=== PATIENT | female | born 2000 | race Caucasian/White ===

== ENCOUNTER 2023-01-29 10:07 | Emergency (ER) | payer BC, OTHER ==
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
[2023-01-29 11:20] VITALS: PULSE 81; TEMP 98.1
[2023-01-29 12:08] VITALS: BP 176/109; O2SAT 100
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
[2023-01-29 13:19] LABS: Appearance Cloudy (Clear); Bacteria Moderate /HPF (None Seen); Bilirubin Negative (Negative); Blood Negative (Negative); Glucose, Urine Negative (Negative); Ketones 15 (Negative); Leukocyte Esterase Moderate (Negative); Nitrite Negative (Negative); Ph 6.5 (4.6-8.0); Protein,Urine Dip 30 (Negative); RBC 0-2 /HPF (0-5); Specific Gravity 1.025 (1.005-1.030)
[2023-01-29 13:20] LABS: Epithelial Cells Few /HPF (None Seen)
[2023-01-29 13:21] LABS: ADD URINE CULTURE? YES (NO); Hyaline Casts None Seen /LPF (0-2); Sperm Rare /HPF (None Seen)
== END 2023-01-29 12:46 | disposition home or self-care (01) ==
LOC: ED 10:07
DX: Z04.1 Encounter for examination and observation following transport accident (principal); O43.899 Other placental disorders, unspecified trimester; R10.31 Right lower quadrant pain; R10.32 Left lower quadrant pain; R10.2 Pelvic and perineal pain
CPT/HCPCS: 76815; 81001; 87086; 99285

== ENCOUNTER 2023-01-29 21:28 | Emergency (ER) | payer BC ==
[2023-01-29 21:55] VITALS: TEMP 98.2
[2023-01-29] MEDS ORDERED: TYLENOL 325 MG PO ONE (22:13)
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
[2023-01-29] MEDS ORDERED: TYLENOL 325 MG ONE (22:26)
[2023-01-29 22:38] LABS: Absolute Neutrophil Ct (ANC) 4.86 x10^3/uL (1.4-6.9); BASOPHIL % 0.5 % (0.0-0.4); Basophil (Absolute #) 0.04 x10^3/uL (0-0.4); Eosinophil % 0.5 % (0.00-5.0); Eosinophil (Absolute #) 0.04 x10^3/uL (0-0.5); Hematocrit 36.8 % (35-47); Hemoglobin 12.8 g/dL (12.0-16.0); IMMATURE GRAN # 0.02 x10^3u/L (0.00-0.03); IMMATURE GRAN % 0.2 % (0.00-0.4); Lymphocyte (Absolute #) 2.69 x10^3/uL (1.0-4.6); Mean Cell Volume 89.1 fL (78-100); Mean Corpuscular Hgb Concent. 34.8 g/dL (32-36); Mean Platelet Volume 10.9 fL (7.5-11.0); Monocyte (Absolute #) 0.75 x10^3/uL (0.0-1.3); Monocytes % 8.9 % (0.0-12.0); Neutrophil % 57.9 % (36.0-66.0); Platelet Count 281 x10^3/uL (150-450); Red Blood Count 4.13 x10^6/uL (4.1-5.4); Red Cell Distribution Width 13.4 % (11.5-14.0); White Blood Count 8.4 x10^3/uL (4.0-10.5)
[2023-01-29 22:54] LABS: ALBUMIN 3.7 g/dL (3.5-5.0); ALKALINE PHOSPHATASE 54 U/L (38-126); ANION GAP 10.7 MEQ/L (5-15); BLOOD UREA NITROGEN 5 mg/dL (7-17); CHLORIDE 103 mmol/L (98-107); Calcium 8.3 mg/dL (8.4-10.2); Carbon Dioxide 24 mmol/L (22-30); Creatinine 1 0.49 mg/dL (0.52-1.04); EST GLOMERULAR FILTRATION RATE > 60.0 ML/MIN; Glucose 88 mg/dL (74-106); Potassium 3.3 mmol/L (3.5-5.1); SGOT/AST 21 U/L (14-36); SGPT/ALT 12 U/L (0-35); SODIUM 134 mmol/L (137-145); Total Protein 6.8 g/dL (6.3-8.2)
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
[2023-01-30 00:48] LABS: Appearance Clear (Clear); Bacteria Rare /HPF (None Seen); Bilirubin Negative (Negative); Blood Negative (Negative); Epithelial Cells Few /HPF (None Seen); Glucose, Urine Negative (Negative); Hyaline Casts NONE SEEN /LPF (0-2); Ketones Trace (Negative); Leukocyte Esterase Trace (Negative); Nitrite Negative (Negative); Protein,Urine Dip Negative (Negative); RBC 0-2 /HPF (0-5); Specific Gravity 1.015 (1.005-1.030); Urobilinogen 0.2 mg/dL (0.2)
[2023-01-30 00:54] LABS: ADD URINE CULTURE? NO (NO)
[2023-01-30] MEDS ORDERED: Klor Con PO ONE ×2 (01:52→01:56)
[2023-01-30] MEDS ORDERED: Trandate 100 MG PO STA (01:52)
[2023-01-30 02:07] VITALS: RESP 18
[2023-01-30 02:35] VITALS: BP 136/88; PULSE 69; O2SAT 96
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
== END 2023-01-30 02:35 | disposition home or self-care (01) ==
LOC: ED 21:28
DX: Z04.1 Encounter for examination and observation following transport accident (principal); O43.892 Other placental disorders, second trimester; O16.2 Unspecified maternal hypertension, second trimester; O23.42 Unspecified infection of urinary tract in pregnancy, second trimester; N39.0 Urinary tract infection, site not specified; Z3A.16 16 weeks gestation of pregnancy; R51.9 Headache, unspecified; E87.6 Hypokalemia; Z28.310 Unvaccinated for COVID-19
CPT/HCPCS: 36000; 36415; 70450; 76815; 80053; 81001; 84702; 85025; 99284; A9270-GY

== ENCOUNTER 2023-04-01 16:21 | Observation (INO) | payer BC ==
[2023-04-01 17:43] LABS: Appearance Cloudy (Clear); Bacteria Rare /HPF (None Seen); Bilirubin Small (Negative); Blood Negative (Negative); Epithelial Cells Moderate /HPF (None Seen); Glucose, Urine Negative (Negative); Hyaline Casts >50 /LPF (0-2); Ketones Trace (Negative); Leukocyte Esterase Negative (Negative); Nitrite Negative (Negative); Ph 6.5 (4.6-8.0); Protein,Urine Dip 100 (Negative); Specific Gravity >=1.030 (1.005-1.030)
[2023-04-01] MEDS ORDERED: Lactated Ringers 1,000 ML IV ONE ×2 (18:20→19:10)
[2023-04-01 19:23] LABS: Absolute Neutrophil Ct (ANC) 8.38 x10^3/uL (1.4-6.9); BASOPHIL % 0.4 % (0.0-0.4); Basophil (Absolute #) 0.05 x10^3/uL (0-0.4); Eosinophil % 0.4 % (0.00-5.0); Eosinophil (Absolute #) 0.04 x10^3/uL (0-0.5); Hematocrit 37.2 % (35-47); Hemoglobin 12.6 g/dL (12.0-16.0); IMMATURE GRAN # 0.08 x10^3u/L (0.00-0.03); IMMATURE GRAN % 0.7 % (0.00-0.4); Lymphocyte (Absolute #) 1.92 x10^3/uL (1.0-4.6); Mean Cell Volume 93.5 fL (78-100); Mean Corpuscular Hemoglobin 31.7 pg (26-32); Mean Corpuscular Hgb Concent. 33.9 g/dL (32-36); Monocyte (Absolute #) 0.82 x10^3/uL (0.0-1.3); Monocytes % 7.3 % (0.0-12.0); Neutrophil % 74.2 % (36.0-66.0); Platelet Count 317 x10^3/uL (150-450); Red Blood Count 3.98 x10^6/uL (4.1-5.4); Red Cell Distribution Width 13.2 % (11.5-14.0); White Blood Count 11.3 x10^3/uL (4.0-10.5)
[2023-04-01 19:37] LABS: Creatinine, Urine Random 163.3 mg/dl; Protein Creatinine Ratio, Ran. 0.09 mg/mg (0.0-0.15)
[2023-04-01] MEDS ORDERED: TYLENOL 325 MG PO PRN (19:39)
[2023-04-01 19:42] LABS: ALBUMIN 3.9 g/dL (3.5-5.0); ANION GAP 14.9 MEQ/L (5-15); BILIRUBIN,TOTAL 0.2 mg/dL (0.2-1.3); Calcium 9.2 mg/dL (8.4-10.2); Creatinine 1 0.51 mg/dL (0.52-1.04); EST GLOMERULAR FILTRATION RATE 133.6 ML/MIN; Total Protein 7.7 g/dL (6.3-8.2); Uric Acid 2.5 mg/dL (2.6-6.0)
[2023-04-01 19:43] VITALS: BP 133/81; PULSE 72; RESP 18; TEMP 99; O2SAT 99
[2023-04-01] MEDS ORDERED: TYLENOL 325 MG ONE (20:12)
[2023-04-01] MEDS ORDERED: Trandate 100 MG PO SCH (22:00)
[2023-04-02] MEDS ORDERED: ECOTRIN 81 MG PO SCH (21:00)
== END 2023-04-01 20:40 | disposition home or self-care (01) ==
LOC: OB 16:21
PROVIDERS: ADMIT Obstetrics & Gynecology; ATTEND Obstetrics & Gynecology
DX: Z34.82 Encounter for supervision of other normal pregnancy, second trimester (principal); Z3A.24 24 weeks gestation of pregnancy
CPT/HCPCS: 36415; 80053; 81001; 82570; 84112; 84156; 84550; 85025; G0378; G0379; A9270-GY

== ENCOUNTER 2023-04-08 23:30 | Observation (INO) | payer OTHER ==
[2023-04-08] MEDS ORDERED: Zofran 4 MG/2 ML VIAL ONE (23:49)
[2023-04-08] MEDS: Zofran 4 MG/2 ML VIAL IV PRN (23:54)
[2023-04-09] MEDS ORDERED: Lactated Ringers 1,000 ML IV ONE
[2023-04-09 00:28] LABS: INFLUENZA A NEGATIVE (NEGATIVE); INFLUENZA B NEGATIVE (NEGATIVE); RESPIRATORY SYNCTIAL VIRUS NEGATIVE (NEGATIVE); SARS-CoV-2 Xpert Express NEGATIVE (NEGATIVE)
[2023-04-09] MEDS ORDERED: Lactated Ringers 1,000 ML IV SCH (01:00)
[2023-04-09] MEDS: Zofran 4 MG/2 ML VIAL IV PRN (01:15)
[2023-04-09] MEDS ORDERED: Zofran 4 MG/2 ML VIAL IV PRN (05:21)
[2023-04-09 06:09] LABS: Hematocrit 35.1 % (35-47); Hemoglobin 11.9 g/dL (12.0-16.0); Mean Cell Volume 92.9 fL (78-100); Mean Corpuscular Hemoglobin 31.5 pg (26-32); Mean Corpuscular Hgb Concent. 33.9 g/dL (32-36); Mean Platelet Volume 10.7 fL (7.5-11.0); Platelet Count 292 x10^3/uL (150-450); Red Blood Count 3.78 x10^6/uL (4.1-5.4)
[2023-04-09 06:25] LABS: ALBUMIN 3.3 g/dL (3.5-5.0); ANION GAP 11.6 MEQ/L (5-15); BILIRUBIN,TOTAL 0.5 mg/dL (0.2-1.3); Calcium 8.3 mg/dL (8.4-10.2); Creatinine 1 0.4 mg/dL (0.52-1.04); EST GLOMERULAR FILTRATION RATE 140.8 ML/MIN; Potassium 3.7 mmol/L (3.5-5.1); Total Protein 6.6 g/dL (6.3-8.2)
[2023-04-09] MEDS ORDERED: ANTI DIARRHEAL PO PRN (07:59)
[2023-04-09] MEDS ORDERED: Sodium Chloride 0.9% 1000 ML 1,000 ML IV SCH (08:00)
--- NOTE | 2023-04-09 08:16 | PCM.HP ---
History of Present Illness - Chief Complaint Chief Complaint: N/V abdominal pain History of Present Illness: is a 23 year old female. pt admitted at 26 wks gestation with current hx of worsening nausea and vomiting since being seen earlier for preeclampsia work up. pt co diarrhea vomiting and nausea after having left hospital yesterday. currently feeling better. Medications & Allergies Home Medications: Home Medication List Aspirin [Aspirin EC] 81 mg PO BID 01/29/23 [History Confirmed 04/09/23] Labetalol HCl 100 mg [Trandate 100 MG] 200 mg PO BID 7 Days #28 tablet 01/30/23 [Rx Confirmed 04/09/23] Allergies/Adverse Reactions: Allergies Allergy/AdvReac Type Severity Reaction Status Date / Time cefdinir [From Omnicef] Allergy Verified 04/09/23 01:48 diphenhydramine Allergy Verified 04/09/23 01:48 [From Benadryl] levofloxacin [From Levaquin] Allergy Verified 04/09/23 01:48 - Past Medical History Past Medical History: Yes Neurological History: No Pertinent History ENT History: No Pertinent History Cardiac History: No Pertinent History Respiratory History: Asthma Endocrine Medical History: No Pertinent History Musculoskelatal History: Fractures GI Medical History: Colitis History: No Pertinent History Pyscho-Social History: No Pertinent History Reproductive Disorders: No Pertinent History - Past Surgical History Past Surgical History: Yes Neuro Surgical History: No Pertinent History Cardiac History: No Pertinent History Respiratory Surgery: No Pertinent History GI Surgical History: No Pertinent History Genitourinary Surgical Hx: No Pertinent History Musculskeletal Surgical Hx: No Pertinent History Female Surgical History: No Pertinent History Other Surgical History: FX ELBOW SURGERY - Social History Smoking Status: Former smoker Exposure to second hand smoke: No Alcohol: None Drug Use: none - Physical Exam Vital Signs: Vital Signs - 24 hr Temp Pulse Resp BP BP Pulse Ox 04/09/23 04:02 101 H 17 133/81 98 04/09/23 00:14 98.1 F 85 17 143/91 99 Neurologic Exam: alert, oriented x 3 Gastrointestinal/Abdomen Exam: soft Pelvic Exam: not done Results - Labs Lab/Micro Results: Lab Results-Last 24 Hours 04/08/23 04/09/23 04/09/23 Range/Units 23:45 05:21 05:22 WBC 9.0 (4.0-10.5) x10^3/uL RBC 3.78 L (4.1-5.4) x10^6/uL Hgb 11.9 L (12.0-16.0) g/dL Hct 35.1 (35-47) % MCV 92.9 (78-100) fL MCH 31.5 (26-32) pg MCHC 33.9 (32-36) g/dL RDW 13.0 (11.5-14.0) % Plt Count 292 (150-450) x10^3/uL MPV 10.7 (7.5-11.0) fL Sodium 132 L (137-145) mmol/L Potassium 3.7 (3.5-5.1) mmol/L Chloride 105 (98-107) mmol/L Carbon Dioxide 19 L (22-30) mmol/L Anion Gap 11.6 (5-15) MEQ/L BUN 3 L (7-17) mg/dL Creatinine 0.40 L (0.52-1.04) mg/dL Estimated GFR 140.8 ML/MIN Glucose 106 (74-106) mg/dL Calcium 8.3 L (8.4-10.2) mg/dL Total Bilirubin 0.50 (0.2-1.3) mg/dL AST 17 (14-36) U/L ALT 10 (0-35) U/L Alkaline Phosphatase 69 (38-126) U/L Serum Total Protein 6.6 (6.3-8.2) g/dL Albumin 3.3 L (3.5-5.0) g/dL Influenza Type A Ag NEGATIVE (NEGATIVE) Influenza Type B Ag NEGATIVE (NEGATIVE) RSV (PCR) NEGATIVE (NEGATIVE) SARS-CoV-2 (PCR) NEGATIVE (NEGATIVE) Assessment/Plan (1) Gastroenteritis Current Visit: Yes Status: Acute Code(s): K52.9 - NONINFECTIVE GASTROENTERITIS AND COLITIS, UNSPECIFIED (2) Vomiting affecting Current Visit: Yes Status: Acute Code(s): O21.9 - VOMITING OF , UNSPECIFIED
--- NOTE | 2023-04-09 08:18 | PCM.NOTE ---
Date and Time: 04/09/23815 Subjective Assessment: pt at 26 wks gestation currently receiving iv hydration due to nausea and vomiting and diarrhea and states feeling better at this time. denies uterine contx and not able to keep food down at this time. vss afebrile abd; soft uterus; gravid pelvic deferred sodium level 133 a/p iup at 26 wks with gastroenteritis will continue iv hydration will anticipate discharge later today OBJECTIVE DATA Vital Signs: Vital Signs - 24 hr Temp Pulse Resp BP BP Pulse Ox 04/09/23 04:02 101 H 17 133/81 98 04/09/23 00:14 98.1 F 85 17 143/91 99 Pain Assessment - Last Documented Pain Intensity 10 Intake and Output: Intake & Output 04/06/23 04/07/23 04/08/23 04/09/23 11:59 11:59 11:59 11:59 Intake Total 400 Output Total 50 Balance 350 Weight 92.079 kg Lab Results: Lab Results-Last 24 Hours 04/08/23 04/09/23 04/09/23 Range/Units 23:45 05:21 05:22 WBC 9.0 (4.0-10.5) x10^3/uL RBC 3.78 L (4.1-5.4) x10^6/uL Hgb 11.9 L (12.0-16.0) g/dL Hct 35.1 (35-47) % MCV 92.9 (78-100) fL MCH 31.5 (26-32) pg MCHC 33.9 (32-36) g/dL RDW 13.0 (11.5-14.0) % Plt Count 292 (150-450) x10^3/uL MPV 10.7 (7.5-11.0) fL Sodium 132 L (137-145) mmol/L Potassium 3.7 (3.5-5.1) mmol/L Chloride 105 (98-107) mmol/L Carbon Dioxide 19 L (22-30) mmol/L Anion Gap 11.6 (5-15) MEQ/L BUN 3 L (7-17) mg/dL Creatinine 0.40 L (0.52-1.04) mg/dL Estimated GFR 140.8 ML/MIN Glucose 106 (74-106) mg/dL Calcium 8.3 L (8.4-10.2) mg/dL Total Bilirubin 0.50 (0.2-1.3) mg/dL AST 17 (14-36) U/L ALT 10 (0-35) U/L Alkaline Phosphatase 69 (38-126) U/L Serum Total Protein 6.6 (6.3-8.2) g/dL Albumin 3.3 L (3.5-5.0) g/dL Influenza Type A Ag NEGATIVE (NEGATIVE) Influenza Type B Ag NEGATIVE (NEGATIVE) RSV (PCR) NEGATIVE (NEGATIVE) SARS-CoV-2 (PCR) NEGATIVE (NEGATIVE) Assessment/Plan (1) Gastroenteritis Current Visit: Yes Status: Acute Code(s): K52.9 - NONINFECTIVE GASTROENTERITIS AND COLITIS, UNSPECIFIED (2) Vomiting affecting Current Visit: Yes Status: Acute Code(s): O21.9 - VOMITING OF , UNSPECIFIED
[2023-04-09 09:56] VITALS: RESP 18
[2023-04-09] MEDS ORDERED: ECOTRIN 81 MG PO SCH (10:00)
[2023-04-09] MEDS ORDERED: Trandate 100 MG PO SCH (10:00)
[2023-04-09 14:44] VITALS: BP 131/75; PULSE 106; TEMP 98.3; O2SAT 99
== END 2023-04-09 13:30 | disposition home or self-care (01) ==
LOC: MED SURG 23:30
PROVIDERS: ADMIT Obstetrics & Gynecology; ATTEND Obstetrics & Gynecology
DX: Z34.82 Encounter for supervision of other normal pregnancy, second trimester (principal); Z3A.26 26 weeks gestation of pregnancy; Z59.89 Other problems related to housing and economic circumstances
CPT/HCPCS: 0241U; 36415; 80053; 85027; G0378; G0379; J2405; A9270-GY

== ENCOUNTER 2023-05-07 14:48 | Observation (INO) | payer BC, OTHER ==
[2023-05-07] MEDS ORDERED: Sodium Chloride 0.9% 1000 ML 1,000 ML IV SCH (15:15)
[2023-05-07 15:33] VITALS: BP 133/85; PULSE 107; RESP 20; TEMP 97.8; O2SAT 99
== END 2023-05-07 17:40 | disposition home or self-care (01) ==
LOC: MED SURG 14:48
PROVIDERS: ADMIT Obstetrics & Gynecology; ATTEND Obstetrics & Gynecology
DX: O26.893 Other specified pregnancy related conditions, third trimester (principal); Z3A.30 30 weeks gestation of pregnancy; E87.1 Hypo-osmolality and hyponatremia
CPT/HCPCS: 99213; G0378; G0379

== ENCOUNTER 2023-11-26 09:06 | Emergency (ER) | payer BC, OTHER ==
--- NOTE | 2023-11-26 09:21 | ERPHSYRPT ---
- History of Present Illness Time Seen by Provider: 11/26/23 09:21 Source: patient Exam Limitations: no limitations Physician History: This is a 23-year-old white female patient of Dr. Talavera who presents to emergency department with 3-day history of headache that is throbbing, sore throat and generalized bodyaches as well as fever. Patient's mother provided additional, independent history because the patient feels poorly. Patient's mother stated that the fever was as high as 104 F. At 730 this a.m., the patient took 600 mg of oral ibuprofen. Patient has earaches and mild neck ache. She has no known exposures to individuals with similar symptoms. She has no back pain. She has no abdominal pain. She has had no diarrhea symptoms. She does not complain of chest pain, shortness of breath or cough. Timing/Duration: day(s) (3), worse Possible Cause: no prior episodes Modifying Factors: Improves With: nothing Associated Symptoms: fever, chills, earache, headache (Bilateral), muscle aches, sore throat, No chest pain/soreness, No cough, No shortness of breath Allergies/Adverse Reactions: cefdinir [From Omnicef] Allergy (Verified 11/26/23 09:29) diphenhydramine [From Benadryl] Allergy (Verified 11/26/23 09:29) levofloxacin [From Levaquin] Allergy (Verified 11/26/23 09:29) Hx Tetanus, Diphtheria Vaccination/Date Given: Yes Hx Influenza Vaccination/Date Given: No Hx Pneumococcal Vaccination/Date Given: No Travel Risk - International Travel Have you traveled outside of the country in past 3 weeks: No - Emerging Infectious Disease Are you exhibiting symptoms associated with any current EIDs: Yes Symptoms: Fever, Headaches/Body Aches/ - Review of Systems Constitutional: Fever Eyes: No Symptoms Ears, Nose, & Throat: No Symptoms Respiratory: No Symptoms Cardiac: No Symptoms Abdominal/Gastrointestinal: Nausea, Appetite Changes, No Abdominal Pain, No Vomiting, No Diarrhea, No Constipation Genitourinary Symptoms: No Symptoms Musculoskeletal: Arthralgias, Neck Pain (Mild), Myalgias, No Back Pain Skin: No Symptoms Neurological: Headache Psychological: No Symptoms Endocrine: No Symptoms Hematologic/Lymphatic: No Symptoms Immunological/Allergic: No Symptoms All Other Systems: Reviewed and Negative - Past Medical History Pertinent Past Medical History: Yes Neurological History: No Pertinent History ENT History: No Pertinent History Cardiac History: No Pertinent History Respiratory History: Asthma Endocrine Medical History: No Pertinent History Musculoskeletal History: Fractures GI Medical History: Colitis History: No Pertinent History Psycho-Social History: No Pertinent History Female Reproductive Disorders: No Pertinent History - Past Surgical History Past Surgical History: Yes Neuro Surgical History: No Pertinent History Cardiac: No Pertinent History Respiratory: No Pertinent History Gastrointestinal: No Pertinent History Genitourinary: No Pertinent History Musculoskeletal: No Pertinent History Female Surgical History: No Pertinent History Other Surgical History: FX ELBOW SURGERY - Female History Hx Last Menstrual Period: CURRENT - Social History Smoking Status: Former smoker Exposure to second hand smoke: No Drug Use: none Patient Lives Alone: No - Social Determinants of Health Will the patient participate in the screening: Yes Do you worry about a steady place to live?: Yes In the past 12 months,have you had to go without utilities?: No Transportation Issues: No Has anyone in your support network made you feel unsafe?: No Have you or anyone in your house had to go without enough: No - Nursing Vital Signs Nursing Vital Signs: Initial Vital Signs Temperature 97.6 F 11/26/23 09:45 Pulse Rate 88 11/26/23 09:45 Respiratory Rate 18 11/26/23 09:45 Blood Pressure 131/92 11/26/23 09:45 O2 Sat by Pulse Oximetry 98 11/26/23 09:45 Pain Scale Pain Intensity 9 - Physical Exam General Appearance: mild distress, alert, anxiety Eye Exam: PERRL/EOMI, eyes nml inspection Ears, Nose, Throat Exam: normal ENT inspection, moist mucous membranes Neck Exam: normal inspection, non-tender, supple, full range of motion, No meningismus Respiratory Exam: normal breath sounds, lungs clear, airway intact, No chest tenderness, No respiratory distress Cardiovascular Exam: regular rate/rhythm, normal heart sounds, normal peripheral pulses Gastrointestinal/Abdomen Exam: soft, normal bowel sounds, tenderness Pelvic Exam: not done Rectal Exam: not done Back Exam: normal inspection, normal range of motion, No CVA tenderness, No vertebral tenderness Extremity Exam: normal inspection, normal range of motion, pelvis stable Neurologic Exam: alert, oriented x 3, cooperative, central office repairer II-XII nml as tested, nml cerebellar function, nml station & gait, sensation nml Skin Exam: normal color, warm, dry, diaphoresis Lymphatic Exam: No adenopathy SpO2 Interpretation: normal O2 Delivery: Room Air Ordered Tests: Active Orders 24 hr Category Date Time Status IV Insertion STAT Care 11/26/23 09:48 Active CHEST 1 VIEW (PORTABLE) Stat Exams 11/26/23 09:59 Completed BLOOD CULTURE Stat Lab 11/26/23 10:30 Received CBC W DIFF Stat Lab 11/26/23 09:55 Completed CMP Stat Lab 11/26/23 09:55 Completed CULTURE,URINE Stat Lab 11/26/23 10:03 Received HCG QUALITATIVE, SERUM Stat Lab 11/26/23 09:50 Completed MONO SCREEN Stat Lab 11/26/23 09:55 Completed UA W/RFX UR CULTURE Stat Lab 11/26/23 10:03 Completed Medication Summary Generic Name Dose Route Start Last Admin Trade Name Freq PRN Reason Stop Dose Admin Sodium Chloride 500 mls @ 500 mls/hr 11/26/23 11:03 Sodium Chloride 0.9% 500 Ml IV 11/26/23 12:02 .Q1H ONE Discontinued Medications Generic Name Dose Route Start Last Admin Trade Name Freq PRN Reason Stop Dose Admin Acetaminophen 650 mg 11/26/23 09:48 11/26/23 10:09 Acetaminophen 325 Mg Tablet PO 11/26/23 09:49 650 mg STAT STA Administration Acetaminophen Confirm 11/26/23 10:05 Acetaminophen 325 Mg Tablet Administered 11/26/23 10:06 Dose 650 mg .ROUTE .STK-MED ONE Azithromycin 500 mg 11/26/23 10:58 Azithromycin 250 Mg Tablet PO 11/26/23 10:59 STAT ONE Sodium Chloride 1,000 mls @ 999 mls/hr 11/26/23 09:48 11/26/23 10:08 Sodium Chloride 0.9% 1000 Ml IV 11/26/23 10:48 999 mls/hr .Q1H1M STA Administration Sodium Chloride Confirm 11/26/23 10:05 Sodium Chloride 0.9% 1000 Ml Administered 11/26/23 10:06 Dose 1,000 mls @ ud .ROUTE .STK-MED ONE Morphine Sulfate 2 mg 11/26/23 10:04 11/26/23 10:41 Morphine Sulfate 2 Mg/Ml Inj IV 11/26/23 10:05 2 mg STAT ONE Administration Morphine Sulfate Confirm 11/26/23 10:40 Morphine Sulfate 2 Mg/Ml Inj Administered 11/26/23 10:41 Dose 2 mg .ROUTE .STK-MED ONE Ondansetron HCl 4 mg 11/26/23 09:48 11/26/23 10:08 Ondansetron Hcl 4 Mg/2 Ml Vial IV 11/26/23 09:49 4 mg STAT STA Administration Ondansetron HCl Confirm 11/26/23 10:04 Ondansetron Hcl 4 Mg/2 Ml Vial Administered 11/26/23 10:05 Dose 4 mg .ROUTE .STK-MED ONE Trimethoprim/Sulfamethoxazole 1 tab 11/26/23 10:58 Smz/Tmp Ds Tablet 1 Tablet PO 11/26/23 10:59 STAT ONE Lab/Rad Data: Laboratory Result Diagrams 11/26/23 09:55 11/26/23 09:55 Laboratory Results 11/26/23 11/26/23 11/26/23 Range/Units 10:03 09:55 09:55 WBC (3.98-10.04) x10^3/uL RBC (3.93-5.22) x10^6/uL Hgb (11.2-15.7) g/dL Hct (34.1-44.9) % MCV (79.4-94.8) fL MCH (25.6-32.2) pg MCHC (32.2-35.5) g/dL RDW (11.7-14.4) % Plt Count (182-369) x10^3/uL MPV (9.4-12.3) fL Gran % (34.0-71.1) % Immature Gran % (Auto) (0.001-0.429) % Nucleat RBC Rel Count (0.00-0.2) % Eos # (Auto) (0.04-0.36) x10^3/uL Immature Gran # (Auto) (0.001-0.031) x10^3u/L Absolute Lymphs (auto) (1.18-3.74) x10^3/uL Absolute Monos (auto) (0.24-0.86) x10^3/uL Absolute Nucleated RBC (0.00-0.012) x10^3u/L Lymphocytes % (19.3-51.7) % Monocytes % (4.7-12.5) % Eosinophils % (0.7-5.8) % Basophils % (0.1-1.2) % Absolute Granulocytes (1.56-6.13) x10^3/uL Basophils # (0.01-0.08) x10^3/uL Sodium 137 (135-145) mmol/L Potassium 3.5 (3.5-5.1) mmol/L Chloride 105 (98-107) mmol/L Carbon Dioxide 21 L (22-30) mmol/L Anion Gap 14.4 (5-15) MEQ/L BUN 8 (7-17) mg/dL Creatinine 0.76 (0.52-1.04) mg/dL Estimated GFR 111.5 ML/MIN Glucose 116 H (74-106) mg/dL Calcium 9.0 (8.4-10.2) mg/dL Total Bilirubin 0.70 (0.2-1.3) mg/dL AST 18 (14-36) U/L ALT 13 (0-35) U/L Alkaline Phosphatase 88 (38-126) U/L Serum Total Protein 7.8 (6.3-8.2) g/dL Albumin 4.2 (3.5-5.0) g/dL Serum HCG, Qual (NEGATIVE) Urine Color Dark Yellow A (Yellow) Urine Appearance Cloudy A (Clear) Urine pH 6.0 (4.6-8.0) Ur Specific Mcclure 1.025 (1.005-1.030) Urine Protein 100 A (Negative) Urine Glucose (UA) Negative (Negative) mg/dL Urine Ketones 15 A (Negative) Urine Blood Large A (Negative) Urine Nitrite Negative (Negative) Urine Bilirubin Negative (Negative) Urine Urobilinogen 1.0 A (0.2) mg/dL Ur Leukocyte Esterase Moderate A (Negative) U Hyaline Cast (Auto) 3-5 A (0-2) /LPF Urine Microscopic RBC 0-2 (0-5) /HPF Urine Microscopic WBC 51-100 A (0-5) /HPF Ur Epithelial Cells Moderate A (None Seen) /HPF Urine Bacteria Few A (None Seen) /HPF Urine Culture Reflexed YES (NO) Monoscreen NEGATIVE (NEGATIVE) Influenza Type A Ag (NEGATIVE) Influenza Type B Ag (NEGATIVE) RSV (PCR) (NEGATIVE) SARS-CoV-2 (PCR) (NEGATIVE) Group A Strep Antibody (NEGATIVE) 11/26/23 11/26/23 11/26/23 Range/Units 09:55 09:50 09:40 WBC 13.5 H (3.98-10.04) x10^3/uL RBC 4.52 (3.93-5.22) x10^6/uL Hgb 12.7 (11.2-15.7) g/dL Hct 38.1 (34.1-44.9) % MCV 84.3 (79.4-94.8) fL MCH 28.1 (25.6-32.2) pg MCHC 33.3 (32.2-35.5) g/dL RDW 14.3 (11.7-14.4) % Plt Count 280 (182-369) x10^3/uL MPV 11.1 (9.4-12.3) fL Gran % 85.6 H (34.0-71.1) % Immature Gran % (Auto) 0.6 H (0.001-0.429) % Nucleat RBC Rel Count 0.0 (0.00-0.2) % Eos # (Auto) 0 L (0.04-0.36) x10^3/uL Immature Gran # (Auto) 0.08 H (0.001-0.031) x10^3u/L Absolute Lymphs (auto) 0.93 L (1.18-3.74) x10^3/uL Absolute Monos (auto) 0.89 H (0.24-0.86) x10^3/uL Absolute Nucleated RBC 0.00 (0.00-0.012) x10^3u/L Lymphocytes % 6.9 L (19.3-51.7) % Monocytes % 6.6 (4.7-12.5) % Eosinophils % 0.0 L (0.7-5.8) % Basophils % 0.3 (0.1-1.2) % Absolute Granulocytes 11.51 H (1.56-6.13) x10^3/uL Basophils # 0.04 (0.01-0.08) x10^3/uL Sodium (135-145) mmol/L Potassium (3.5-5.1) mmol/L Chloride (98-107) mmol/L Carbon Dioxide (22-30) mmol/L Anion Gap (5-15) MEQ/L BUN (7-17) mg/dL Creatinine (0.52-1.04) mg/dL Estimated GFR ML/MIN Glucose (74-106) mg/dL Calcium (8.4-10.2) mg/dL Total Bilirubin (0.2-1.3) mg/dL AST (14-36) U/L ALT (0-35) U/L Alkaline Phosphatase (38-126) U/L Serum Total Protein (6.3-8.2) g/dL Albumin (3.5-5.0) g/dL Serum HCG, Qual NEGATIVE (NEGATIVE) Urine Color (Yellow) Urine Appearance (Clear) Urine pH (4.6-8.0) Ur Specific Mcclure (1.005-1.030) Urine Protein (Negative) Urine Glucose (UA) (Negative) mg/dL Urine Ketones (Negative) Urine Blood (Negative) Urine Nitrite (Negative) Urine Bilirubin (Negative) Urine Urobilinogen (0.2) mg/dL Ur Leukocyte Esterase (Negative) U Hyaline Cast (Auto) (0-2) /LPF Urine Microscopic RBC (0-5) /HPF Urine Microscopic WBC (0-5) /HPF Ur Epithelial Cells (None Seen) /HPF Urine Bacteria (None Seen) /HPF Urine Culture Reflexed (NO) Monoscreen (NEGATIVE) Influenza Type A Ag NEGATIVE (NEGATIVE) Influenza Type B Ag NEGATIVE (NEGATIVE) RSV (PCR) NEGATIVE (NEGATIVE) SARS-CoV-2 (PCR) NEGATIVE (NEGATIVE) Group A Strep Antibody (NEGATIVE) 11/26/23 Range/Units 09:40 WBC (3.98-10.04) x10^3/uL RBC (3.93-5.22) x10^6/uL Hgb (11.2-15.7) g/dL Hct (34.1-44.9) % MCV (79.4-94.8) fL MCH (25.6-32.2) pg MCHC (32.2-35.5) g/dL RDW (11.7-14.4) % Plt Count (182-369) x10^3/uL MPV (9.4-12.3) fL Gran % (34.0-71.1) % Immature Gran % (Auto) (0.001-0.429) % Nucleat RBC Rel Count (0.00-0.2) % Eos # (Auto) (0.04-0.36) x10^3/uL Immature Gran # (Auto) (0.001-0.031) x10^3u/L Absolute Lymphs (auto) (1.18-3.74) x10^3/uL Absolute Monos (auto) (0.24-0.86) x10^3/uL Absolute Nucleated RBC (0.00-0.012) x10^3u/L Lymphocytes % (19.3-51.7) % Monocytes % (4.7-12.5) % Eosinophils % (0.7-5.8) % Basophils % (0.1-1.2) % Absolute Granulocytes (1.56-6.13) x10^3/uL Basophils # (0.01-0.08) x10^3/uL Sodium (135-145) mmol/L Potassium (3.5-5.1) mmol/L Chloride (98-107) mmol/L Carbon Dioxide (22-30) mmol/L Anion Gap (5-15) MEQ/L BUN (7-17) mg/dL Creatinine (0.52-1.04) mg/dL Estimated GFR ML/MIN Glucose (74-106) mg/dL Calcium (8.4-10.2) mg/dL Total Bilirubin (0.2-1.3) mg/dL AST (14-36) U/L ALT (0-35) U/L Alkaline Phosphatase (38-126) U/L Serum Total Protein (6.3-8.2) g/dL Albumin (3.5-5.0) g/dL Serum HCG, Qual (NEGATIVE) Urine Color (Yellow) Urine Appearance (Clear) Urine pH (4.6-8.0) Ur Specific Mcclure (1.005-1.030) Urine Protein (Negative) Urine Glucose (UA) (Negative) mg/dL Urine Ketones (Negative) Urine Blood (Negative) Urine Nitrite (Negative) Urine Bilirubin (Negative) Urine Urobilinogen (0.2) mg/dL Ur Leukocyte Esterase (Negative) U Hyaline Cast (Auto) (0-2) /LPF Urine Microscopic RBC (0-5) /HPF Urine Microscopic WBC (0-5) /HPF Ur Epithelial Cells (None Seen) /HPF Urine Bacteria (None Seen) /HPF Urine Culture Reflexed (NO) Monoscreen (NEGATIVE) Influenza Type A Ag (NEGATIVE) Influenza Type B Ag (NEGATIVE) RSV (PCR) (NEGATIVE) SARS-CoV-2 (PCR) (NEGATIVE) Group A Strep Antibody DETECTED (NEGATIVE) - Progress Progress: improved, re-examined Air Movement: good Progress Note: 11/26/23 10:15 My medical decision making and the assignment of moderate complexity to this patient's medical issue today is based on review of the patient's past medical history, review of patient's medication list, review the patient drug allergy list, history present illness and physical findings on examination. The workup in this patient includes cbc, cmp, ua, test, mono test, strep test, ivf, saline infusion, viral illness differential dx includes but not limited to viral illness, uti, strep pharyngitis 11/26/23 10:49 The chest x-ray was interpreted by the radiologist and I reviewed the impression. The impression states no acute cardiopulmonary process. 11/26/23 11:04 I interpreted the patient's laboratory data results. The patient has a significant urinary tract infection and strep pharyngitis. Blood Culture(s) Obtained: Yes Counseled pt/family regarding: lab results, diagnosis, need for follow-up Medical Desision Making - Independent Historian Additional History obtained from: Mother - Diagnostic Testing Diagnostic test were ordered, analyzed, and reviewed by me: Yes Radiological Interpretation: Reviewed by me, Teleradiologist Report - Risk of complications The pt has a mod risk of morbidity or mortality based on: Need for prescription drug management - Departure Departure Disposition: Home Clinical Impression: Mild dehydration, Strep pharyngitis, UTI (urinary tract infection) Condition: Stable Critical Care Time: No Referrals: YARIEL TALAVERA MD [Primary Care Provider] - Follow up/PCP as directed Additional Instructions: Drink plenty of clear liquids before advancing your diet. Alternate Tylenol and ibuprofen every 4 hours while awake to treat aches, pains and fever. Take your antibiotics and antifungal medication as prescribed. Call your primary care provider today to make arrangements for follow-up appointment for further evaluation and management. Prescriptions: Smz/Tmp Ds Tablet [Bactrim Ds Tablet] 1 udtab PO BID #14 tablet Fluconazole 100 mg [Diflucan 100 MG] 100 mg PO DAILY #2 tablet Azithromycin 250 mg [Zithromax 250 MG TABLET] 250 mg PO ZPACK #6 tablet
[2023-11-26 09:46] VITALS: RESP 18; TEMP 97.6
[2023-11-26 09:57] LABS: Absolute Neutrophil Ct (ANC) 11.51 x10^3/uL (1.56-6.13); BASOPHIL % 0.3 % (0.1-1.2); Basophil (Absolute #) 0.04 x10^3/uL (0.01-0.08); Eosinophil (Absolute #) 0 x10^3/uL (0.04-0.36); Hematocrit 38.1 % (34.1-44.9); Hemoglobin 12.7 g/dL (11.2-15.7); IMMATURE GRAN # 0.08 x10^3u/L (0.001-0.031); IMMATURE GRAN % 0.6 % (0.001-0.429); Lymphocyte (Absolute #) 0.93 x10^3/uL (1.18-3.74); Lymphocytes % 6.9 % (19.3-51.7); Mean Cell Volume 84.3 fL (79.4-94.8); Mean Corpuscular Hemoglobin 28.1 pg (25.6-32.2); Mean Corpuscular Hgb Concent. 33.3 g/dL (32.2-35.5); Mean Platelet Volume 11.1 fL (9.4-12.3); Monocyte (Absolute #) 0.89 x10^3/uL (0.24-0.86); Monocytes % 6.6 % (4.7-12.5); Neutrophil % 85.6 % (34.0-71.1); Platelet Count 280 x10^3/uL (182-369); Red Blood Count 4.52 x10^6/uL (3.93-5.22); Red Cell Distribution Width 14.3 % (11.7-14.4); White Blood Count 13.5 x10^3/uL (3.98-10.04)
[2023-11-26] MEDS ORDERED: Zofran 4 MG/2 ML VIAL ONE (10:04)
[2023-11-26] MEDS ORDERED: Sodium Chloride 0.9% 1000 ML 1,000 ML ONE (10:05)
[2023-11-26] MEDS ORDERED: TYLENOL 325 MG ONE (10:05)
[2023-11-26 10:07] LABS: ALBUMIN 4.2 g/dL (3.5-5.0); ANION GAP 14.4 MEQ/L (5-15); BILIRUBIN,TOTAL 0.7 mg/dL (0.2-1.3); Creatinine 1 0.76 mg/dL (0.52-1.04); EST GLOMERULAR FILTRATION RATE 111.5 ML/MIN; Potassium 3.5 mmol/L (3.5-5.1); Total Protein 7.8 g/dL (6.3-8.2)
[2023-11-26 10:08] LABS: HCG SERUM TEST NEGATIVE (NEGATIVE)
[2023-11-26] MEDS: Sodium Chloride 0.9% 1000 ML 1,000 ML IV STA (10:08)
[2023-11-26] MEDS: Zofran 4 MG/2 ML VIAL IV STA (10:08)
[2023-11-26] MEDS: TYLENOL 325 MG PO STA (10:09)
--- NOTE | 2023-11-26 10:14 | XRAY ---
Indication: Fever, chills, and bodyache. Comparison: None Portable chest inflated and clear with incidental small left infrahilar calcified granuloma. Heart not enlarged. Bony thorax intact with mild dextroscoliosis.
[2023-11-26 10:18] VITALS: PULSE 94
[2023-11-26 10:29] LABS: INFLUENZA A NEGATIVE (NEGATIVE); INFLUENZA B NEGATIVE (NEGATIVE); RESPIRATORY SYNCTIAL VIRUS NEGATIVE (NEGATIVE); SARS-CoV-2 Xpert Express NEGATIVE (NEGATIVE)
[2023-11-26] MEDS ORDERED: MORPHINE SULFATE 2 MG INJ ONE (10:40)
[2023-11-26] MEDS: MORPHINE SULFATE 2 MG INJ IV ONE (10:41)
[2023-11-26 10:47] LABS: ADD URINE CULTURE? YES (NO); Appearance Cloudy (Clear); Bacteria Few /HPF (None Seen); Bilirubin Negative (Negative); Blood Large (Negative); Epithelial Cells Moderate /HPF (None Seen); Glucose, Urine Negative (Negative); Ketones 15 (Negative); Leukocyte Esterase Moderate (Negative); Nitrite Negative (Negative); Protein,Urine Dip 100 (Negative); RBC 0-2 /HPF (0-5); Specific Gravity 1.025 (1.005-1.030); WBC 51-100 /HPF (0-5)
[2023-11-26] MEDS ORDERED: Zithromax 250 MG TABLET ONE (11:05)
[2023-11-26] MEDS ORDERED: BACTRIM DS TABLET PO ONE (11:05)
[2023-11-26] MEDS: Zithromax 250 MG TABLET PO ONE (11:07)
[2023-11-26] MEDS: BACTRIM DS TABLET PO ONE (11:08)
[2023-11-26] MEDS ORDERED: Sodium Chloride 0.9% 500 ML 500 ML IV ONE (11:10)
[2023-11-26] MEDS: Sodium Chloride 0.9% 500 ML 500 ML IV ONE (11:11)
[2023-11-26 11:23] VITALS: BP 128/79; O2SAT 96
== END 2023-11-26 12:55 | disposition home or self-care (01) ==
LOC: ED 09:06
DX: J02.0 Streptococcal pharyngitis (principal); N39.0 Urinary tract infection, site not specified; E86.0 Dehydration; R51.9 Headache, unspecified; M79.10 Myalgia, unspecified site; R50.9 Fever, unspecified; H92.03 Otalgia, bilateral; M54.2 Cervicalgia
CPT/HCPCS: 0241U; 36000; 36415; 71045; 80053; 81001; 84703; 85025; 86308; 87040; 87086; 87651; 96360; 96361; 96374; 96375; 99284; J2270; J2405; A9270-GY

== ENCOUNTER 2024-08-10 23:59 | Emergency (ER) | payer BC, OTHER ==
[2024-08-11 00:13] VITALS: RESP 18; TEMP 97
--- NOTE | 2024-08-11 00:23 | ERPHSYRPT ---
- History of Present Illness Time Seen by Provider: 08/11/24 00:12 Source: patient Exam Limitations: no limitations Physician History: Patient is a 24-year-old female presents to our emergency department for pain to the lateral forefoot. Patient states she inverted her foot several hours prior to arrival. No other injuries reported. No BHT or LOC no neck pain. Cervical spine cleared clinically. Patient denies ankle leg knee hip back pain. Patient is otherwise healthy. She voices no other complaints or concerns at this time. Patient declined pain medication Method of Injury: twisted Occurred: this evening Quality: constant Severity of Pain-Max: moderate Severity of Pain-Current: mild Lower Extremities Pain: foot: left, other: left (The involved left lower extremity is neurovascular tact distally compartments are soft cap refill less than 2 seconds. Overlying soft tissue intact. No involvement of other joints up the kinetic chain.) Modifying Factors: Improves With: movement (Pain worse with movement and weightbearing) Associated Symptoms: none Allergies/Adverse Reactions: ertapenem [From Invanz] Allergy (Mild, Verified 08/11/24 00:13) Diarrhea cefdinir [From Omnicef] Allergy (Verified 08/11/24 00:13) diphenhydramine [From Benadryl] Allergy (Verified 08/11/24 00:13) levofloxacin [From Levaquin] Allergy (Verified 08/11/24 00:13) Hx Tetanus, Diphtheria Vaccination/Date Given: Yes Hx Influenza Vaccination/Date Given: No Hx Pneumococcal Vaccination/Date Given: No Travel Risk - Emerging Infectious Disease Are you exhibiting symptoms associated with any current EIDs: Yes Symptoms: Fever, Headaches/Body Aches/ - Review of Systems Constitutional: No Symptoms, No Fever, No Chills Eyes: No Symptoms Ears, Nose, & Throat: No Symptoms Respiratory: No Symptoms, No Cough, No Dyspnea Cardiac: No Symptoms, No Chest Pain, No Edema, No Syncope Abdominal/Gastrointestinal: No Symptoms, No Abdominal Pain, No Nausea, No Vomiting, No Diarrhea Genitourinary Symptoms: No Symptoms, No Dysuria Musculoskeletal: No Symptoms, No Back Pain, No Neck Pain Skin: No Symptoms, No Rash Neurological: No Symptoms, No Dizziness, No Focal Weakness, No Sensory Changes Psychological: No Symptoms Endocrine: No Symptoms Hematologic/Lymphatic: No Symptoms Immunological/Allergic: No Symptoms All Other Systems: Reviewed and Negative - Past Medical History Pertinent Past Medical History: Yes Neurological History: No Pertinent History ENT History: No Pertinent History Cardiac History: No Pertinent History Respiratory History: Asthma Endocrine Medical History: No Pertinent History Musculoskeletal History: Fractures GI Medical History: Colitis History: No Pertinent History Psycho-Social History: No Pertinent History Female Reproductive Disorders: No Pertinent History - Past Surgical History Past Surgical History: Yes Neuro Surgical History: No Pertinent History Cardiac: No Pertinent History Respiratory: No Pertinent History Gastrointestinal: No Pertinent History Genitourinary: No Pertinent History Musculoskeletal: No Pertinent History Female Surgical History: No Pertinent History Other Surgical History: FX ELBOW SURGERY - Female History Hx Last Menstrual Period: CURRENT Hx Now: No - Social History Smoking Status: Former smoker Exposure to second hand smoke: No Drug Use: none Patient Lives Alone: No - Social Determinants of Health Will the patient participate in the screening: Yes Do you worry about a steady place to live?: Yes In the past 12 months,have you had to go without utilities?: No Transportation Issues: No Has anyone in your support network made you feel unsafe?: No Have you or anyone in your house had to go w/o enough food: No - Nursing Vital Signs Nursing Vital Signs: Initial Vital Signs Temperature 97.0 F 08/11/24 00:05 Pulse Rate 71 08/11/24 00:05 Respiratory Rate 18 08/11/24 00:05 Blood Pressure 178/109 08/11/24 00:05 O2 Sat by Pulse Oximetry 99 08/11/24 00:05 Pain Scale Pain Intensity 7 - Physical Exam General Appearance: alert Eyes, Ears, Nose, Throat Exam: moist mucous membranes Neck Exam: non-tender, supple Cardiovascular/Respiratory Exam: chest non-tender, normal breath sounds, regular rate/rhythm, no respiratory distress Gastrointestinal/Abdominal Exam: non-tender, guarding Back Exam: normal inspection, No vertebral tenderness Hips Exam: bilateral: non-tender, normal inspection, normal range of motion, no evidence of injury Legs Exam: bilateral leg: non-tender, normal inspection, normal range of motion, no evidence of injury Knees Exam: bilateral knee: non-tender, normal inspection, normal range of motion, no evidence of injury Ankle Exam: bilateral ankle: non-tender, normal inspection, normal range of motion, no evidence of injury Foot Exam: right foot: non-tender, normal inspection, normal range of motion, no evidence of injury Neuro/Tendon Exam: normal sensation, normal motor functions Mental Status Exam: alert, oriented x 3, cooperative Skin Exam: normal color, warm, dry SpO2 Interpretation: normal SpO2: 99 O2 Delivery: Room Air - Course Nursing assessment & vital signs reviewed: Yes - Radiology Exams Foot X-ray Interpretation: Interpreted by me (No fracture or dislocation) Ordered Tests: Active Orders 24 hr Category Date Time Status FOOT (MINIMUM 3 VIEWS) Stat Exams 08/11/24 00:11 Taken Medication Summary Discontinued Medications Generic Name Dose Route Start Last Admin Trade Name Alan PRN Reason Stop Dose Admin Ibuprofen 600 mg 08/11/24 00:23 08/11/24 00:25 Ibuprofen 600 Mg Tablet PO 08/11/24 00:24 600 mg STAT ONE Administration Ibuprofen Confirm 08/11/24 00:24 Ibuprofen 600 Mg Tablet Administered 08/11/24 00:25 Dose 600 mg .ROUTE .[facility]-MED ONE - Progress Progress: improved Progress Note: 24-year-old female presents to emergency department for evaluation of inversion sprain to her left foot. Physical exam reveals tenderness to palpation along the lateral border of the foot. The involved extremity is neurovascularly intact distally compartments are soft cap refill less than 2 seconds. No involvement of her ankle. X-ray negative for fracture dislocation. However this is a preliminary read. Formal read pending. Patient given bilateral axillary crutches. Ibuprofen administered as well. A prescription for Toradol forwarded to patient's pharmacy. Patient given referral to the orthopedic clinic. She agrees to follow-up tomorrow in the clinic as planned between the hours of 8 and 10 AM. No indication for further workup. Patient voices no other complaints or concerns at this time. Portions of this note were created with voice recognition technology. There may be grammatical, spelling, punctuation or sound alike errors Complexity of problem addressed is moderate acute complicated. No critical care time. Complexity of data reviewed and analyzed is moderate. Test ordered chest reviewed results analyzed and correlated clinically with history and physical exam. Dr. Reyna independently reviewed the x-ray of the left foot. No obvious fracture or dislocation. Formal read pending. Risk of complication and or risk of morbidity/mortality of patient management is moderate. A prescription for Toradol forwarded to patient's pharmacy. Vital stable. Time spent to discharge patient approximately 15 minutes. No social determinants of health present to impede follow-up. Portions of this note were created with voice recognition technology. There may be grammatical, spelling, punctuation or sound alike errors Counseled pt/family regarding: diagnosis, need for follow-up, rad results - Departure Departure Disposition: Home Clinical Impression: Foot sprain Condition: Stable Critical Care Time: No Referrals: YARIEL TALAVERA MD [Primary Care Provider] - Follow up/PCP as directed Additional Instructions: Discharge/Care Plan KENNETH KOTHARI was seen on 08/11/24 in the Emergency Room. The patient was counseled regarding Diagnosis,Lab results, Imaging studies, need for follow up and when to return to the Emergency Room. Prescriptions given: Discharge Note I have spoken with the patient and/or caregivers. I have explained the patient's condition, diagnosis and treatment plan based on the information available to me at this time. I have answered the patient's and/or caregiver's questions and addressed any concerns. The patient and/or caregivers have as good understanding of the patient's diagnosis, condition and treatment plan as can be expected at this point. The vital signs have been stable. The patient's condition is stable and appropriate for discharge from the emergency department. The patient will pursue further outpatient evaluation with the primary care physician or other designated or consulting physician as outlined in the discharge instructions. The patient and/or caregivers are agreeable to this plan of care and follow-up instructions have been explained in detail. The patient and/or caregivers have received these instruction. The patient/and or caregivers are aware that any significant change in condition or worsening of symptoms should prompt an immediate return to this or the closest emergency department or call 911. Prescriptions: Ketorolac Trometh 10 mg Tab [TORAdol 10 MG TABLET] 10 mg PO TID 5 Days #15 tablet Outpatient Orders: Ortho Referral Time Frame: 1 Day, Facility: [facility], Location: ORTHO CLINIC
[2024-08-11] MEDS ORDERED: MOTRIN 600 MG ONE (00:24)
[2024-08-11] MEDS: MOTRIN 600 MG PO ONE (00:25)
[2024-08-11 00:45] VITALS: BP 139/97; PULSE 89; O2SAT 99
--- NOTE | 2024-08-11 08:58 | XRAY ---
Indication: Pain. Comparison: None 3 nonweightbearing views left foot obtained. No bony, articular, or soft tissue abnormalities.
== END 2024-08-11 00:50 | disposition home or self-care (01) ==
LOC: ED 23:59
DX: S93.602A Unspecified sprain of left foot, initial encounter (principal); X50.0XXA Overexertion from strenuous movement or load, initial encounter; Z79.899 Other long term (current) drug therapy; Z59.819 Housing instability, housed unspecified
CPT/HCPCS: 73630; 99283; A9270-GY